=== PATIENT | female | born 1960 | race Caucasian/White ===

== ENCOUNTER 2018-10-10 12:46 | Inpatient (IN) | payer OTHER ==
[2018-10-10] MEDS ORDERED: Adacel (T-DAP) 0.5 ML SYRINGE ONE (13:04)
[2018-10-10 13:18] LABS: #Lymphocytes 0.9 thou/uL (1.20-3.40); #Monocytes 0.6 thou/uL (0.11-0.59); #Neutrophils 8.3 thou/uL (1.40-6.50); %Basophils 0.3 % (0.0-1.0); %Eosinophils 0.2 % (0.0-10.0); %Lymphocytes 9.4 % (21.0-51.0); %Monocytes 5.7 % (0.0-10.0); %Neutrophils 84.4 % (42.0-75.0); Hemoglobin 12.3 g/dL (12.0-16.0); Mean Corpuscular HGB CONC 33.8 g/dL (32.0-36.0); Mean Corpuscular Volume 91.9 fL (78.0-98.0); Mean Platelet Volume 6.9 fL (7.4-10.4); Platelet Count 264 thou/uL (130-400); RBC Distribution Width 11.6 % (11.5-14.5); Red Blood Cell (RBC) Count 3.97 mill/uL (4.20-5.40); White Blood Cell (WBC) Count 9.8 thou/uL (4.8-10.8)
[2018-10-10] MEDS ORDERED: CEFAZOLIN 1 GM VIAL ONE (13:22)
[2018-10-10 13:40] LABS: ALT (SGPT) 13 U/L (8-55); AST (SGOT) 22 U/L (5-34); Albumin 4.1 g/dL (3.5-5.0); Alkaline Phosphatase 71 U/L (40-150); Anion Gap 13 mmol/L (10-20); BUN (Urea Nitrogen) 15 mg/dL (9.8-20.1); Bilirubin, Total 1.1 mg/dL (0.2-1.2); Calc. Creatinine Clearance 0 mL/min (70-130); Carbon Dioxide 22 mmol/L (22-29); Chloride 106 mmol/L (98-107); Estimated GFR-MDRD 68; Globulin 2.4 g/dL (2.4-3.5); Glucose 128 mg/dL (70-105); Potassium 4.3 mmol/L (3.5-5.1); Protein, Total 6.5 g/dL (6.0-8.3); Sodium 137 mmol/L (136-145)
[2018-10-10] MEDS ORDERED: Morphine 4 MG/ML VIAL ONE (14:17)
[2018-10-10] MEDS ORDERED: Glycopyrrolate 0.2 MG/ML 5 ML SYRINGE ONE (14:28)
[2018-10-10] MEDS ORDERED: PROPOFOL 200 MG/20 ML VIAL ONE (14:28)
[2018-10-10] MEDS ORDERED: Dexamethasone 20 MG/5 ML VIAL ONE (14:28)
[2018-10-10] MEDS ORDERED: Ondansetron PF 4 MG/2 ML Vial ONE (14:28)
[2018-10-10] MEDS ORDERED: Lidocaine 1% PF 5 ML VIAL ONE (14:28)
[2018-10-10] MEDS ORDERED: Ketorolac Tromethamine 30 MG/ML VIAL ONE (14:28)
[2018-10-10] MEDS ORDERED: Metoclopramide HCl 10 MG/2 ML VIAL ONE (14:28)
[2018-10-10] MEDS ORDERED: Rocuronium Bromide 10 MG/ML (10ML VIAL) ONE (14:28)
--- NOTE | 2018-10-10 14:28 | RAD ---
AP PELVIS: Date: 10/10/18 INDICATION: Fall with injury. FINDINGS: The hips appear intact. Superior and inferior rami appear intact. Ilii appear intact. Linear lucency over the right sacrum is felt to represent bowel gas. However, if there is tenderness over the right sacrum, recommend further evaluation with CT or MRI. Otherwise no abnormality seen. IMPRESSION: Linear lucency overlying the right sacrum is felt to be artifactual and represent overlying bowel. Re commend clinical correlation regarding tenderness at the right sacrum. Bony pelvis is otherwise unremarkable. POS: [facility]
--- NOTE | 2018-10-10 14:30 | RAD ---
CHEST 1 VIEW: Date: 10/10/18 HISTORY: Injury following a fall. FINDINGS: Monitor leads overlie the chest. There is some deformity of the left glenohumeral joint region, which more of an old appearance, possibly related to old trauma. No pneumothorax or pleural effusion. The right costophrenic angle is not completely included on this study. IMPRESSION: No significant acute intrathoracic disease. Deformity in the region of the left glenohumeral joint, p ossibly related to old trauma. No pneumonia, edema, pleural effusion, pneumothorax, or other acute pr ocess. POS: [facility]
--- NOTE | 2018-10-10 14:35 | RAD ---
LEFT FOREARM 3 VIEWS: Date: 10/10/18 HISTORY: Fall with injury. FINDINGS: Comminuted, displaced fracture of the radial diaphysis. An oblique displaced fracture of the distal u lnar diaphysis. Both fractures show overriding fragments. Ulnar fracture appears to protrude through the skin. There are plate and screws posterior to the distal radius consistent with an old internal fixation. IMPRESSION: Acute displaced fracture of mid radius and ulna. POS: [facility]
--- NOTE | 2018-10-10 14:36 | RAD ---
LEFT HUMERUS 2 VIEWS: Date: 10/10/18 HISTORY: Injury from trauma, fall. FINDINGS: There are some subchondral cystic changes and deformity of the humeral head and neck region, having t he appearance of an old fracture or other old insult. No acute fracture or dislocation. IMPRESSION: No acute fracture or dislocation. Deformity of the left humeral head and neck, evidence for old injur y. POS: [facility]
--- NOTE | 2018-10-10 14:39 | RAD ---
RIGHT KNEE 4 VIEWS: Date: 10/10/18 INDICATION: Trauma. Fell from horse with injury to knee. FINDINGS: There is a lateral tibial plateau fracture. No significant depression apparent. Large hemarthrosis is noted with huge joint effusion in the suprapatellar region. IMPRESSION: Lateral tibial plateau fracture with associated hemarthrosis. POS: [facility]
[2018-10-10] MEDS ORDERED: Midazolam HCl 2 mg/2 ml Vial ONE (15:07)
[2018-10-10] MEDS ORDERED: Famotidine/PF 20 mg/2ml Vial ONE (15:10)
[2018-10-10] MEDS ORDERED: Fentanyl 100 MCG/2 ML VIAL ONE (15:10)
[2018-10-10] MEDS ORDERED: Neomycin-Polymyxin 1 ML AMP ONE ×2 (15:31→18:47)
[2018-10-10 15:39] LABS: BHCG - Serum Negative (NEGATIVE); Pregs Control Background? CLEAR/WHITE (CLR/WHITE); Pregs Control Bar Appear? YES (CONTROL BAR)
[2018-10-10] MEDS ORDERED: Scopolamine 1.5 mg/72 hour Patch ONE (15:43)
--- NOTE | 2018-10-10 16:06 | HP ---
ATTENDING SURGEON: Dr. Estrada. CONSULTATIONS: Orthopedics, Dr. Youssef. HISTORY OF PRESENT ILLNESS: The patient is a 58-year-old female, who was riding a horse for sporting activity when she fell off it. She was wearing her protective vest to include a vest that has an air bag system in it. She fell to the ground, she was wearing her helmet and had no loss of consciousness. She had immediate pain to her left forearm and noted to have deformity due to an open fracture and significant pain to her right knee. She was brought to the emergency department by air ambulance where she underwent evaluation and examination and was noted to have a left open radius and ulnar fracture and a right tibial plateau fracture, which time we were asked to evaluate the patient for admission and obtain Orthopedic consultation. The patient was evaluated in the emergency department by Dr. Youssef who was going to take her urgently to the operating room for irrigation and debridement of her open fracture and other procedures as necessary. Final determination of the tibial plateau has not been made at this time. ALLERGIES: NONE. CURRENT MEDICATIONS: Celebrex. PAST MEDICAL HISTORY: Arthritis. PAST SURGICAL HISTORY: ORIF of left arm, surgery for left knee tibial plateau injury, breast augmentation. SOCIAL HISTORY: The patient denies drug, tobacco, or alcohol use. REVIEW OF SYSTEMS: A 10-point review of systems is negative except as otherwise stated. PHYSICAL EXAMINATION: VITAL SIGNS: Blood pressure 115/77, heart rate 78, respirations 16, oxygen saturation 97% on room air, and temperature is 98. GENERAL: The patient is resting comfortably in bed. She is awake, alert, and oriented x3. Center Coma Scale is 15. HEENT: Unremarkable. Head is normocephalic and atraumatic. Extraocular motion intact. PERRLA bilaterally. Ears are atraumatic without discharge. Nose, atraumatic without discharge. Oropharynx is clear. NECK: Nontender. Trachea is midline with no JVD. CHEST: Clear to auscultation with good inspiratory and expiratory effort. HEART: Regular rate and rhythm. ABDOMEN: Soft, flat, nontender with active bowel sounds. EXTREMITIES: Neurovascularly intact x4. Left upper extremity is immobilized in a sling with a pre-hospital splint intact. Her dressing was not taken down. By the ER report, she has a 3 to 4 cm laceration. The right lower extremity has contusion and ecchymosis on the medial aspect. BACK: Atraumatic and nontender. LABORATORY FINDINGS: White blood cell count 9.8, hemoglobin 12.3, hematocrit 36.5, platelets 264. Sodium 137, potassium 4.3, chloride 106, CO2 of 22, BUN 15, creatinine 0.85, glucose 128. LFTs are unremarkable. HCG is pending. RADIOGRAPHIC FINDINGS: AP chest x-ray shows no significant acute intrathoracic disease. AP pelvis, bony pelvis is unremarkable. Left humerus shows no acute fracture or dislocation. Left forearm shows an acute displaced fracture of the mid radius and ulna. View of the right knee shows a lateral tibial plateau fracture with associated hemarthrosis. ASSESSMENT: 1. Status post fall from horse. 2. Open left radius and ulnar fracture. 3. Right tibial plateau fracture. 4. Acute pain secondary to above. PLAN: Plan will be to admit the patient to the surgical floor. She will go to day stay first to undergo her operative procedure. Postoperatively, we will do physical and occupational therapy, pain control, pulmonary toilet, gastritis and mechanical VTE prophylaxis. The patient will be discussed afterwards also. The evaluation, examination, laboratory, and radiographic findings were discussed with and evaluated by Dr. Estrada in the day stay area. Job ID: [id number]
[2018-10-10] MEDS ORDERED: Bupivacaine HCl 0.5%/Epinephrine 1:200,000/PF 30 ml Vial ONE (16:17)
[2018-10-10] MEDS ORDERED: Gentamicin 80 MG/2 ML VIAL ONE (16:24)
--- NOTE | 2018-10-10 18:09 | HP ---
HISTORY OF PRESENT ILLNESS: Ms. Sage is a 58-year-old right-handed female, who lives in the [facility], she came down here, was riding a horse, the horse choked, the patient fell, had immediate pain in the right forearm. She had open wound with a portion of the bone protruding through the skin. She has no neurologic complaints in the left hand or upper extremity. No other complaints elsewhere. She was wearing a helmet and had no loss of consciousness. CURRENT MEDICATIONS: Celebrex. ALLERGIES: NONE. PAST SURGICAL HISTORY: ORIF of the left distal radius and left knee surgery. SOCIAL HISTORY: The patient is . She does not use tobacco or alcohol. PHYSICAL EXAMINATION: GENERAL: The patient is a very pleasant female, alert, and oriented x3. VITAL SIGNS: Blood pressure 118/80, pulse 79, respiratory rate 18, and O2 saturation 95% on room air. HEENT: Exam is unremarkable for age. Cranial nerves 2 through 12 grossly intact. NECK: Good range of motion without pain. Thoracic and lumbar spine are nontender to palpation. LUNGS: Clear bilaterally. HEART: Regular rate and rhythm. ABDOMEN: Soft and nontender. Bowel sounds positive. : Not done. EXTREMITIES: The patient has an open wound on the ulnar aspect of the distal forearm with portion of the distal ulna protruding through the skin. She is able to flex and extend all her digits. The entire left hand is neurovascularly intact. DIAGNOSTIC DATA: X-rays of the left forearm shows plate and screws in the distal radius consistent with previous ORIF of the distal radius. This patient has fractures of the distal shaft of the radius and ulna, and there is some comminution of both radius and ulna. The ulna fracture is protruding through the skin. ADMISSION DIAGNOSES: Open distal radius and ulna shaft fractures. PLAN: The patient was given IV antibiotics. She will be taken to the operating room, where she undergo irrigation and debridement of the left forearm with open reduction and internal fixation of the distal radius and ulnar shaft. The patient will require admission overnight to continue to receive IV antibiotics to decrease the chance for infection. Discussed the plan with the patient and her . They agreed. Job ID: [id number]
[2018-10-10] MEDS ORDERED: Promethazine HCl 25 MG/ML VIAL ONE (20:06)
--- NOTE | 2018-10-10 20:22 | OP ---
DATE OF PROCEDURE: 10/10/2018 PREOPERATIVE DIAGNOSIS: Comminuted open left radius and ulna fractures with retention of plate and screws from previous fracture in the distal radius. POSTOPERATIVE DIAGNOSIS: Comminuted open left radius and ulna fractures with retention of plate and screws from previous fracture in the distal radius. PROCEDURES PERFORMED: 1. Irrigation and debridement of the left forearm. 2. Removal of hardware from the distal aspect of the left radius. 3. Open reduction and internal fixation of the left distal radius and ulnar comminuted shaft fracture. ANESTHESIA: General. DESCRIPTION OF PROCEDURE: The patient was given preoperative IV antibiotics, taken to the operating room, placed in the supine position. Satisfactory general anesthesia was performed. The left upper extremity dressing was removed. The distal aspect of the shaft of the ulna was protruding through the skin and was covered with dirt and debris. The left upper extremity was sterilely prepped and draped in usual fashion. After exsanguination, tourniquet was raised to 250 mmHg. The wound was opened proximally and distally and the debris was removed with pickups and hemostats and then copiously irrigated with antibiotic solution using the high-speed salesforce specialist. The patient had a previous volar plate placed and she had a well-healed scar. Incision was made through the scar and then brought more proximally, where the fracture was present. Blunt dissection was made down to the plate and the three locking screws were removed from the metaphyseal region. Five smaller locking screws at 3M were fairly easily removed. At 1M, the head was completely pulled off and then was able to be removed with other instruments and the last screw in the radial styloid was cut even with the bone and was left in the bone. Next, the comminuted ulna fractures were then brought together internally fixed with a 6-hole 3rd tubular plate and 3.5 cortical and locking screws. The comminuted shaft fracture of the radius was brought together and internally fixed with a 7-hole 3.5 LCP Synthes locking plate using 3.5 cortical screw proximally and 3.5 cortical screw distally to all of the comminuted fractures. Additional 3.5 locking screws were applied. This provided excellent reduction and fixation. C-arm was used during the procedure. The wounds again were copiously irrigated and closed using 0 Vicryl for the fat and subcutaneous tissues. Skin was closed with 3-0 Rapide. The wounds were then infiltrated with 30 mL of 0.5% Marcaine with epinephrine. Sterile dressing was applied along with a 3-inch Orthoglass. The tourniquet was released when it was 117 minutes and good hemostasis was obtained. ESTIMATED BLOOD LOSS: 100 mL. COMPLICATIONS: None. Job ID: [id number]
[2018-10-10] MEDS ORDERED: traMADol HCl 50 MG TAB PO PRN (20:47)
[2018-10-10] MEDS ORDERED: Morphine 4 MG/ML VIAL SLOW IVP PRN ×2 (20:47)
[2018-10-10] MEDS ORDERED: Ondansetron ODT 4 MG TAB PO PRN (20:47)
[2018-10-10] MEDS ORDERED: hydrALAZINE 20 MG/ML VIAL SLOW IVP PRN (20:47)
[2018-10-10] MEDS ORDERED: Dextrose 5% in Water 1,000 ML IV PRN (20:47)
[2018-10-10] MEDS ORDERED: Dextrose 50% Abboject 50 ML SYRINGE SLOW IVP PRN (20:47)
[2018-10-10] MEDS ORDERED: HYDROcodone/Acetaminophen 10/325 mg Tablet PO PRN ×4 (21:09→21:11)
[2018-10-10] MEDS ORDERED: Fentanyl 100 MCG/2 ML VIAL SLOW IVP PRN (21:12)
[2018-10-10] MEDS ORDERED: Ondansetron PF 4 MG/2 ML Vial SLOW IVP PRN (21:13)
[2018-10-10] MEDS ORDERED: Sodium Chloride 0.9% 1,000 ML IV SCH (21:15)
[2018-10-10 21:33] VITALS: BMI 19.3
[2018-10-10] MEDS: Famotidine 20 MG TAB PO SCH (23:20)
[2018-10-10] MEDS: Ibuprofen 600 MG TAB PO SCH (23:20)
[2018-10-10] MEDS: Acetaminophen 500 MG TAB PO SCH (23:20)
[2018-10-10] MEDS: CEFAZOLIN 2 GM in Premix Bag 1 BAG IVPB SCH (23:21)
[2018-10-11] MEDS: Gentamicin Sulfate 80 MG in Premix Bag 1 BAG IVPB SCH ×2 (00:25→09:04)
[2018-10-11] MEDS: Ibuprofen 600 MG TAB PO SCH ×3 (04:08→19:49)
[2018-10-11] MEDS: Acetaminophen 500 MG TAB PO SCH ×2 (04:08→09:05)
[2018-10-11] MEDS: Sodium Chloride 0.9% 1,000 ML IV SCH ×2 (04:10→05:36)
[2018-10-11] MEDS: CEFAZOLIN 2 GM in Premix Bag 1 BAG IVPB SCH (05:35)
[2018-10-11 05:45] LABS: #Lymphocytes 1.7 thou/uL (1.20-3.40); #Monocytes 1.1 thou/uL (0.11-0.59); #Neutrophils 10.1 thou/uL (1.40-6.50); %Basophils 0.1 % (0.0-1.0); %Lymphocytes 12.9 % (21.0-51.0); %Monocytes 8.7 % (0.0-10.0); %Neutrophils 78.3 % (42.0-75.0); Hemoglobin 10.2 g/dL (12.0-16.0); Mean Corpuscular HGB CONC 33.2 g/dL (32.0-36.0); Mean Corpuscular Hemoglobin 31.1 pg (27.0-31.0); Mean Corpuscular Volume 93.7 fL (78.0-98.0); Mean Platelet Volume 7.1 fL (7.4-10.4); Platelet Count 246 thou/uL (130-400); RBC Distribution Width 11.8 % (11.5-14.5); Red Blood Cell (RBC) Count 3.27 mill/uL (4.20-5.40); White Blood Cell (WBC) Count 12.9 thou/uL (4.8-10.8)
[2018-10-11 06:04] LABS: Anion Gap 11 mmol/L (10-20); BUN (Urea Nitrogen) 11 mg/dL (9.8-20.1); Calc. Creatinine Clearance 65 mL/min (70-130); Calcium 8.8 mg/dL (7.8-10.44); Carbon Dioxide 24 mmol/L (22-29); Chloride 106 mmol/L (98-107); Estimated GFR-MDRD 70; Glucose 123 mg/dL (70-105); Potassium 4.1 mmol/L (3.5-5.1); Sodium 137 mmol/L (136-145)
--- NOTE | 2018-10-11 08:51 | RAD ---
THREE VIEWS LEFT WRIST: DATE: 10/10/2018. PROVIDED CLINICAL HISTORY: Trauma. FINDINGS: Comparison 10/10/2018. Interval removal of previously demonstrated volar plate and screw associated w ith distal radius. Interval ORIF with plate and screws of the previously described radial and ulnar diaphyseal fractures with resultant improved alignment. Screw remains within the radial styloid. IMPRESSION: As above. POS: [facility]
[2018-10-11] MEDS: Famotidine 20 MG TAB PO SCH ×2 (09:05→19:49)
[2018-10-11] MEDS: traMADol HCl 50 MG TAB PO PRN ×2 (09:05→18:11)
[2018-10-11] MEDS: Enoxaparin Sodium 40 MG/0.4 ML SYRINGE SC SCH (09:07)
--- NOTE | 2018-10-11 12:45 | PRG ---
DATE OF SERVICE: 10/11/2018 SUBJECTIVE: The patient is hospital day #2, postop day #1, status post being thrown from a horse when she sustained an open left forearm fracture and a right nondisplaced tibial plateau fracture. She underwent open reduction and internal fixation and irrigation and debridement of her open fracture, and her tibial plateau fracture will be treated nonoperatively with a knee immobilizer. The patient overnight had no issues. This morning, she is tolerating a diet. Her pain is controlled. She is awaiting her first session with Physical and Occupational Therapy. PHYSICAL EXAMINATION: VITAL SIGNS: Temperature is 98.2, heart rate 65, blood pressure 109/66, respirations 15, and oxygen saturation is 96% on room air. GENERAL: The patient is resting comfortably in bed. She is awake, alert, and oriented x3. [place] Coma Scale is 15. HEENT: Unremarkable. LUNGS: Clear to auscultation with good inspiratory and expiratory effort. HEART: Regular rate and rhythm. ABDOMEN: Soft, flat, nontender with active bowel sounds. EXTREMITIES: Neurovascularly intact x4. Left upper extremity has a splint in place, which is clean, dry, and intact. Right lower extremity has clean, dry, and intact knee immobilizer. LABORATORY FINDINGS: White blood cell count 12.9, hemoglobin 10.2, hematocrit 30.7, and platelets 246. Sodium 137, potassium 4.1, chloride 106, CO2 of 24, BUN 11, creatinine 0.83, and glucose 123. There are no radiographs reviewed this morning. ASSESSMENT: 1. Status post ejection from horse. 2. Status post open left radius and ulna fracture, status post open reduction and internal fixation of left distal radius and ulnar fracture. 3. Right tibial plateau fracture, treated with immobilizer. 4. Acute traumatic pain, improved. PLAN: Plan is to have patient work with Physical and Occupational Therapy, and we will discuss placement with the patient. She is a candidate for rehab. , She does live in the [place] area, so we will have Case Management look towards that direction, likely ready for discharge tomorrow. Job ID: [id number]
[2018-10-11] MEDS ORDERED: HYDROcodone/Acetaminophen 10/325 mg Tablet PO PRN ×2 (13:10)
--- NOTE | 2018-10-11 15:42 | PRG ---
DATE OF SERVICE: 10/11/2018 SUBJECTIVE: The patient is one day status post irrigation and debridement with open reduction and internal fixation of open comminuted shaft fractures of the left radius and ulna. She also is noted to have a nondisplaced fracture of the lateral tibial plateau that she has been treated with a knee immobilizer and nonweightbearing. The patient has some numbness in the left hand associated with swelling. She has no neurologic complaints in her right lower extremity. The patient still very limited on transfers and she needs to be nonweightbearing on the right lower extremity and cannot use the left hand or wrist. OBJECTIVE: The patient is afebrile. Vital signs are stable. The dressing was removed from the left forearm. The laceration and incisions on the left forearm are apparently healing. She does have quite a bit of swelling and bruising. There is no erythema or drainage. She does have quite a bit of swelling in her hand which restricts her range of motion in her hand. There is decreased sensation in the hand as well. Examination of the right knee shows she has mild swelling in the knee. She is tender in the lateral aspect of the knee over the proximal aspect of the tibia. LABORATORY DATA: Hemoglobin is 10.2, hematocrit 30.7. PLAN: The patient will continue to work with Physical and Occupational therapy to work on transfers. She will need to be nonweightbearing on the right lower extremity for approximately 3 months. She realized she is at a high risk for infection with the left forearm since she fell essentially into horse maneuver. She will need to keep a close eye on that. We will continue with antibiotics after she is finished with these doses IV prophylactically. The plan is to go to rehab facility since she is significantly limited with 2 extremities, which is a good idea. Job ID: [id number]
[2018-10-11] MEDS: HYDROcodone/Acetaminophen 10/325 mg Tablet PO PRN (19:48)
[2018-10-12] MEDS: HYDROcodone/Acetaminophen 10/325 mg Tablet PO PRN (00:18)
[2018-10-12] MEDS: Ibuprofen 600 MG TAB PO SCH (04:49)
[2018-10-12] MEDS: Famotidine 20 MG TAB PO SCH ×2 (08:43→21:24)
[2018-10-12] MEDS: Loratadine 10 MG TAB PO SCH (08:44)
[2018-10-12] MEDS: Enoxaparin Sodium 40 MG/0.4 ML SYRINGE SC SCH (08:44)
[2018-10-12] MEDS: Sulfameth/Trimethoprim DS 800-160mg TAB PO SCH ×2 (08:59→21:24)
--- NOTE | 2018-10-12 09:27 | RAD ---
LEFT FOREARM 2 VIEW SERIES: CLINICAL HISTORY: Prior fracture, with history of ORIF left forearm. FINDINGS: Plate and screw fixation of the mid to distal radius and distal ulna present traversing sites of prev iously described fracture. Alignment is near-anatomic. There is a metallic screw within the region of the radial styloid. There is soft tissue swelling. Overlying splint is present. IMPRESSION: Fixated radial and ulnar fractures with near-anatomic alignment. POS: [facility]
--- NOTE | 2018-10-12 10:35 | PRG ---
DATE OF SERVICE: 10/12/2018 SUBJECTIVE: Ms. Sage is 2 days status post irrigation and debridement of the left forearm with open reduction and internal fixation of the left radius and ulna. The patient states that she still has quite a bit of pain, but it is gradually decreasing. The swelling in her left hand is also decreasing. OBJECTIVE: VITAL SIGNS: Temperature 98.5, pulse 68, respiratory rate 16, blood pressure 98/61. The patient will continue with physical and occupational therapy, working on getting out of bed. She will need to be nonweightbearing on the left wrist and her right knee. X-rays were obtained of the left forearm today. It shows the plate and screws are in good position and the comminuted fractures of the midshaft of the radius and ulna also are in good alignment. PLAN: At discharge to go to rehab near [place] has accepted her, but we are still awaiting insurance approval. Job ID: [id number]
[2018-10-12] MEDS: Ketorolac Tromethamine 30 MG/ML VIAL IVP SCH ×3 (11:47→23:26)
--- NOTE | 2018-10-12 13:10 | PRG ---
DATE OF SERVICE: 10/12/2018 SUBJECTIVE: This is a 58-year-old female, hospital day #3, postop day #2 status post being thrown from a horse, when she sustained an open left forearm fracture and a right nondisplaced tibial plateau fracture. The patient underwent open reduction and internal fixation and irrigation and debridement of her open fracture. Her tibial plateau fracture will be treated nonoperatively with a knee immobilizer. The patient had no overnight events. The patient continues to tolerate a regular diet. The patient's pain is controlled at this time. She continues to work with physical and occupational therapy. The patient remains nonweightbearing in left arm and right lower extremity. OBJECTIVE: VITAL SIGNS: Blood pressure 130/77, temperature 98.4, pulse 64, respirations 16, and SpO2 of 96% on room air. GENERAL: The patient is awake and alert, in no distress, sitting up in the chair. HEENT: Unremarkable. LUNGS: Good inspiratory and expiratory effort. No distress. HEART: Regular rate and rhythm. ABDOMEN: Soft, nontender, and nondistended. EXTREMITIES: Neurovascularly intact x4. Left upper extremity has a splint in place, which is clean, dry, and intact. Right lower extremity has clean, dry, and intact knee immobilizer. LABORATORY DATA: There are no labs to review today. IMPRESSION: 1. Status post ejection from horse. 2. Status post open left radial and ulnar fracture, status post open reduction and internal fixation. 3. Right tibial plateau fracture, treated with immobilizer. 4. Acute traumatic pain, improving. PLAN: Continue to have the patient work with physical and occupational therapy. Continue the patient's pain regimen. We will place the patient on a bowel regimen. Switch to oral antibiotics for open fracture. The patient pending placement to inpatient rehab. The patient was examined with Dr. Cool during morning rounds. Job ID: [id number] [facility]
[2018-10-12] MEDS: Ondansetron PF 4 MG/2 ML Vial IVP PRN (18:19)
[2018-10-12] MEDS: Senokot S 8.6-50 MG TAB PO SCH (21:24)
[2018-10-13] MEDS: Ketorolac Tromethamine 30 MG/ML VIAL IVP SCH ×3 (05:17→17:31)
[2018-10-13] MEDS: Polyethylene Glycol 3350 17 GM Packet PO SCH (09:07)
[2018-10-13] MEDS: Enoxaparin Sodium 40 MG/0.4 ML SYRINGE SC SCH (09:08)
[2018-10-13] MEDS: Senokot S 8.6-50 MG TAB PO SCH ×2 (09:08→20:43)
[2018-10-13] MEDS: Famotidine 20 MG TAB PO SCH ×2 (09:08→20:44)
[2018-10-13] MEDS: Loratadine 10 MG TAB PO SCH (09:08)
[2018-10-13] MEDS: Sulfameth/Trimethoprim DS 800-160mg TAB PO SCH ×2 (09:08→20:44)
[2018-10-13] MEDS: Ondansetron PF 4 MG/2 ML Vial IVP PRN (09:12)
--- NOTE | 2018-10-13 16:34 | PRG ---
DATE OF SERVICE: 10/13/2018 SUBJECTIVE: This is a 58-year-old female, hospital day #4, postop day #3, status post being thrown from a horse. The patient sustained an open left forearm fracture and a right nondisplaced tibial plateau fracture. The patient underwent open reduction, internal fixation with irrigation and debridement of her open arm fracture. The patient remains in a right knee immobilizer. The patient had no overnight events. The patient continues to tolerate diet and voices no concerns. The patient also continues to walk with Physical Therapy and walk on her own. OBJECTIVE: VITAL SIGNS: Temperature 98.4, pulse 74, respirations 16, SpO2 of 95% on room air, blood pressure 100/64. GENERAL: The patient awake, alert, sitting up in the bed, brushing her teeth. HEENT: Unremarkable. LUNGS: Good expiratory and inspiratory effort. No distress. EXTREMITIES: Neurovascularly intact x4. Left upper extremity has a splint in place, which is clean, dry, and intact. IMPRESSION: 1. Status post ejection from horse. 2. Status post open left radial and ulnar fracture postop day #3 with open reduction, internal fixation. 3. Right tibial plateau fracture, treated with knee immobilizer. 4. Acute traumatic pain improving. PLAN: Continue to have the patient work with physical and occupational therapy. Continue the patient's p.o. pain regimen. The patient continues to await placement and insurance authorization and the patient rehab in [place]. The patient was assessed with Dr. Cool, who agrees with the plan. Plan also discussed with the patient and her spouse, who also agrees with the plan. Job ID: [id number]
[2018-10-14] MEDS: traMADol HCl 50 MG TAB PO PRN ×2 (02:42→08:58)
--- NOTE | 2018-10-14 04:56 | PRG ---
DATE OF SERVICE: 10/13/2018 SUBJECTIVE: The patient is improving. The IV Toradol has significantly decreased her pain. She is able to be more active and is able to participate with therapy. The patient has remained afebrile. Vital signs have remained stable. Dressing was changed on the left forearm and the laceration on the ulnar aspect and the incision on the radial aspect are looking very good. The swelling is decreasing. There is no erythema. There is some mild drainage from the ulnar wound. Swelling in the hand is decreasing. The patient is able to flex and extend the hand better. She has some numbness on the radial aspect of the hand, but the numbness she had on the ulnar aspect has decreased. The patient is awaiting approval by her insurance company to go to rehab as soon as that is done, she will be able to be discharged possibly this afternoon. Prescription was written for her in case she is able to be discharged and go to rehab. Prescriptions written for [place] 10 one every 6 hours as needed for pain #50 and Bactrim DS one p.o. b.i.d. #14. She has an orthopedic surgeon in the [facility] area that she will meet with and here she will continue care for the left forearm and the right knee. Otherwise, they have my card and they are welcome to call if they have any questions or problems. Job ID: [id number]
[2018-10-14 08:21] VITALS: BP 98/58; TEMP 98.3
[2018-10-14] MEDS: Enoxaparin Sodium 40 MG/0.4 ML SYRINGE SC SCH (08:50)
[2018-10-14] MEDS: Senokot S 8.6-50 MG TAB PO SCH (08:50)
[2018-10-14] MEDS: Polyethylene Glycol 3350 17 GM Packet PO SCH (08:50)
[2018-10-14] MEDS: Sulfameth/Trimethoprim DS 800-160mg TAB PO SCH (08:50)
[2018-10-14] MEDS: Loratadine 10 MG TAB PO SCH (08:51)
--- NOTE | 2018-10-15 00:43 | DIS ---
DATE OF ADMISSION: 10/10/2018 DATE OF DISCHARGE: 10/14/2018 CONSULT: Dr. Youssef. DISCHARGING PHYSICIAN: Dr. Cool. PROCEDURES: 1. On 10/10/2018, x-ray of left forearm shows plate and screws in the distal radius consistent with previous open reduction and internal fixation of the distal radius. The patient has fractures of the distal shafts of the radius and ulnar and there was some comminution of both radius and ulnar. The ulnar fracture is protruding through the skin. 2. Chest x-ray, no acute thoracic disease. 3. Right knee x-ray, impression; lateral tibial plateau fracture with associated hemiarthrosis. 4. Pelvis x-ray, superior-inferior rami appear intact. PRIMARY DIAGNOSES: 1. Open distal radius and ulnar shaft fracture, non-operative. 2. Right tibial plateau fracture. DISCHARGE MEDICATIONS: 1. Ibuprofen 400 mg p.o. q.6 hours. 2. Claritin 10 mg p.o. daily. 3. Hydrocodone 1 tablet p.o. q.4 hours as needed for pain. DISCONTINUED MEDICATIONS: None. HISTORY OF PRESENT ILLNESS AND HOSPITAL COURSE: This is a 58-year-old female who was ejected from a horse and had immediate pain in the right forearm. The patient had open wound with portion of the bone protruding through the skin. The patient had no neurological complaints to that extremity. The patient also reported right knee pain. The patient was wearing a helmet and had no loss of consciousness. On 10/10/2018, the patient was taken to the operating room by Dr. Youssef for irrigation and debridement of the left forearm, removal of hardware from the distal aspect of the left radius and open reduction and internal fixation of the left distal radius and ulnar comminuted shaft fracture. The patient's right tibial plateau fracture was non-operative and the patient was placed in a knee immobilizer. The patient had no unexpected events. The patient tolerated a diet and her pain was well controlled during her hospital course. The patient was able to ambulate and participate with physical therapy postop. On the day of discharge, the patient' s vital signs were stable. The patient's exam including cardiopulmonary and GI exam were within normal limits. The patient voices no complaints on the day of discharge. The patient was stable for discharge to inpatient rehab in her hometown near [place] for continued physical therapy and occupational therapy. DISPOSITION: Stable. DISCHARGE INSTRUCTIONS: 1. Location: Inpatient rehab out of town. 2. Diet: Regular diet. 3. Activity: Orthopedic limitations, nonweightbearing left arm, weightbearing as tolerated right lower extremity. Plan was also discussed with Dr. Cool, who agrees. Job ID: [id number]
[2018-10-17] MEDS ORDERED: Ibuprofen 600 MG TAB PO SCH (21:00)
== END 2018-10-14 10:00 | DRG 511 ==
LOC: ERS 12:46 → SDC 14:28 → SURG A 14:36
PROVIDERS: ADMIT Orthopaedic Surgery; ATTEND Orthopaedic Surgery
PROC: 0PSJ04Z Reposition Left Radius with Internal Fixation Device, Open Approach (ICD-10-PCS; principal; 2018-10-10)
PROC: 2W3LXYZ Immobilization of Right Lower Extremity using Other Device (ICD-10-PCS; 2018-10-10)
DX: S52.502B Unspecified fracture of the lower end of left radius, initial encounter for open fracture type I or II (principal); S82.144A Nondisplaced bicondylar fracture of right tibia, initial encounter for closed fracture; S52.602B Unspecified fracture of lower end of left ulna, initial encounter for open fracture type I or II; V80.010A Animal-rider injured by fall from or being thrown from horse in noncollision accident, initial encounter; Y92.9 Unspecified place or not applicable; M19.90 Unspecified osteoarthritis, unspecified site; Y93.52 Activity, horseback riding; Z79.899 Other long term (current) drug therapy
CPT/HCPCS: 36415; 71045; 72170; 76000; 80048; 80053; 84703; 85025; 90471; 90715; 93005; 96365; 96375; C1713; G0390; J0131; J0670; J0690; J1100; J1580; J1650; J1885; J2001; J2250; J2270; J2405; J2550; J2704; J2765; J3010; S0028